=== PATIENT | female | born 1975 | race Caucasian/White ===

== ENCOUNTER → 2019-05-30 | Outpatient (CLI) | payer BC ==
[2006-07-06 16:30] VITALS: PULSE 76; TEMP 98.2
[~2019-05-30] MED LIST: PRENATAL1 TAB PO
== END ==
LOC: MC.RAD 16:28
DX: Z12.31 Encounter for screening mammogram for malignant neoplasm of breast (principal)

== ENCOUNTER 2019-06-29 08:40 | Day surgery (SDC) | payer BC ==
[~2019-06-29] VITALS: Ht 165.1 cm; Wt 73.5 kg
[2019-06-29 09:33] VITALS: BP 152/82; PULSE 112; TEMP 97.8
[2019-06-29] MEDS ORDERED: SLEEP TABS25 MG PO (09:51)
[2019-06-29 10:51] VITALS: BP 111/64; PULSE 102
--- NOTE | 2019-06-29 10:51 | NUR ---
Patient returns to room 7 per cart accompanied by Nick HIGGINBOTHAM AND Diamond REYNOSO. Drowsy and is resting with eyes closed. Temp 98.3 and room air sats 99%. Incision left flank area covered with rodriguez set and no drainage noted. IV fluids infusing and siderails up x2. Call light in reach. Friends in room and allowed to rest.
[2019-06-29 11:06] VITALS: BP 112/64; PULSE 81
--- NOTE | 2019-06-29 11:06 | NUR ---
More awake and drinking water. Room air sats 96%. Denies pain or nasuea.
[2019-06-29 11:21] VITALS: BP 111/71; PULSE 73
--- NOTE | 2019-06-29 11:21 | NUR ---
Room air sats 96%. Continues to sip on water and talk with friends.
[2019-06-29] MEDS ORDERED: MOTRIN 600600 MG/TAB PO (11:22)
[2019-06-29] MEDS ORDERED: TYLENOL 325MG325 MG PO (11:22)
--- NOTE | 2019-06-29 11:41 | NUR ---
IV discontinued and patient dresses self. Was medicated with Motrin 600mg po prior discharge.
--- NOTE | 2019-06-29 11:50 | NUR ---
Dismissal instructions given and voices understanding of these. Instructed to take Motrin or Tylenol as needed for pain.
--- NOTE | 2019-06-29 11:57 | NUR ---
Patient dismissed to home driven by friend Uriel and taken to the front door per wheelchair and assisted into car by Daisy REYNOSO. Dismissal instructions in hand.
== END 2019-06-29 11:57 | disposition home or self-care (01) ==
LOC: SDCO 08:40
DX: D17.1 Benign lipomatous neoplasm of skin and subcutaneous tissue of trunk (principal)
CPT/HCPCS: J0690; J2704; J3010; J7120